=== PATIENT | male | born 2000 | race Caucasian/White ===

== ENCOUNTER 2025-01-07 16:21 | Emergency (ER) | payer OTHER ==
[~2025-01-07] VITALS: Ht 172.7 cm; Wt 102.3 kg
[2025-01-07] MEDS: IBUPROFEN 600 MG TABLET PO ONE (17:00)
[2025-01-07 18:10] VITALS: BP 131/80; PULSE 79; RESP 18; O2SAT 100
[2025-01-07] MEDS ORDERED: IBUP-1492 PO (18:11)
== END 2025-01-07 18:41 | disposition home or self-care (01) ==
LOC: EMS 16:21
DX: S93.401A Sprain of unspecified ligament of right ankle, initial encounter (principal); X50.1XXA Overexertion from prolonged static or awkward postures, initial encounter; Y93.89 Activity, other specified; Y92.89 Other specified places as the place of occurrence of the external cause; Y99.8 Other external cause status
CPT/HCPCS: 29515; 99283